=== PATIENT | female | born 1950 | race Caucasian/White ===

== ENCOUNTER 2018-10-18 08:20 | Day surgery (SDC) | payer MEDICARE, OTHER ==
--- NOTE | 2018-10-18 08:04 | PCM.HP ---
H&P History of Present Illness - General Date of Service: 10/18/18 Admit Problem/Dx: History GI bleed, anemia, duodenal/esophageal/gastric ulcers, possible Milena- Barrett tears, change in bowel habits, diarrhea, intermittent abdominal pain, history of tubular adenomatous colon polyp, EGD and colonoscopy Source of Information: Patient, Family - History of Present Illness Initial Comments - Free Text/Narative: The patient is a 67-year-old female referred by Dr. Arcos for a follow-up EGD post GI bleed. She was evaluated last in the clinic on 09/11/2018. Family denies any major medical changes since that visit. However, now has some upper abdominal pain that occurs a couple of times a day for seconds is sharp and not related to eating, seems random. She completed 75% of prep, she is unsure if stools were clear, may have been liquid/brown. The patient was evaluated by cardiology due to non-exertional chest pain, hx of CAD and CABG, after September visit and was cleared for procedure. She did have an echocardiogram to further evaluate her lower leg edema and EF was normal 55-60%. She did have mild to moderate mitral valve regurgitation and mild to moderate aortic regurgitation as well as a grade 1 diastolic dysfunction. The patient has history of being admitted to [facility] in June 2018 for an upper GI bleed. She was found to have nonbleeding duodenal ulcers with visible vessels likely related to NSAID use and acute blood loss anemia secondary to those ulcers. GI recommended a follow-up EGD in 8 weeks to further assess healing and continued PPI use. The patient continues to deny any constipation. She has history of diarrhea. She continues to have at least six stools daily that are light brown, she sees her pills in her stool. Patient did completed stool studies after September visit. C. Diff, stool cultures and cryptosporidium /giardia were negative. She has history of incontinence. She did have a CT scan in June that was negative. No blood in the stool, melena, rectal bleeding. NO abdominal pain today. No family history of IBD or colon cancer. Last colonoscopy was 1999. No reflux, heartburn, nausea, vomiting. She does have trouble swallowing her medications. She continues on Prilosec 40 mg twice daily. She's had no recurrence of symptoms she had an Julia she stopped all NSAIDs. She takes Tylenol for pain. She history of drinking around 1.2 L of henry per week now she drinks very little or nothing. She does continue to have mild anemia. Family does report she has some disoloration of skin to left lower leg from brace. Patient wears the brace under pants, with low socks, directly on skin. - Related Data Allergies/Adverse Reactions: Allergies Allergy/AdvReac Type Severity Reaction Status Date / Time amoxicillin [From Augmentin] Allergy Cannot Verified 10/17/18 12:06 Remember clavulanic acid Allergy Cannot Verified 10/17/18 12:06 [From Augmentin] Remember iodine Allergy Cannot Verified 10/17/18 12:06 Remember Penicillins Allergy Cannot Verified 10/17/18 12:06 Remember quinapril [From Accupril] Allergy Cannot Verified 10/17/18 12:06 Remember Sulfa (Sulfonamide Allergy Cannot Verified 10/17/18 12:06 Antibiotics) Remember Home Medications: Home Meds Acetaminophen [Tylenol] 650 mg PO Q4H PRN 10/17/18 [History] Alendronate Sodium [Fosamax] 70 mg PO WEEKLY 10/17/18 [History] Anastrozole [Arimidex] 1 mg PO DAILY 10/17/18 [History] Baclofen 30 mg PO BID 10/17/18 [History] DULoxetine HCl [Cymbalta] 90 mg PO DAILY 10/17/18 [History] Furosemide 20 mg PO DAILY 10/17/18 [History] Isosorbide Mononitrate [Imdur] 30 mg PO DAILY 10/17/18 [History] Levothyroxine [Synthroid] 100 mcg PO DAILY 10/17/18 [History] Loperamide [Imodium] 2 mg PO ASDIRECTED PRN 10/17/18 [History] Metoprolol Succinate [Toprol XL 100mg] 100 mg PO DAILY 10/17/18 [History] Modafinil 200 mg PO DAILY 10/17/18 [History] Multivitamin [Daily Multiple Vitamin] 1 tab PO DAILY 10/17/18 [History] Potassium Chloride [Klor-Con 10] 10 meq PO DAILY 10/17/18 [History] Trospium [Sanctura] 20 mg PO DAILY 10/17/18 [History] Vit A/Vit C/Vit E/Zinc/Copper [Preservision] 1 tab PO BID 10/17/18 [History] atorvaSTATin Calcium [Lipitor] 20 mg PO DAILY 10/17/18 [History] busPIRone HCl [Buspirone HCl] 7.5 mg PO TID 10/17/18 [History] traMADol [Ultram] 50 mg PO TID 10/17/18 [History] Omeprazole 40 mg PO BID 10/18/18 [History] Zolpidem [Ambien] 5 mg PO DAILY 10/18/18 [History] Past Medical History HEENT History: Reports: None Cardiovascular History: Reports: CAD, High Cholesterol, Hypertension, Other ( See Below) Other Cardiovascular History: aortic valve regurgiation, mitral valve regurgitation, left bundle branch block Respiratory History: Reports: None Gastrointestinal History: Reports: Colon Polyp, GI Bleed, Other (See Below) Other Gastrointestinal History: ulcer Genitourinary History: Reports: Other (See Below) Other Genitourinary History: overactive bladder 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 Musculoskeletal History: Reports: None, Other (See Below) Other Musculoskeletal History: MS Neurological History: Reports: MS Psychiatric History: Reports: Anxiety, Depression Endocrine/Metabolic History: Reports: Hypothyroidism, Obesity/BMI 30+, Osteopenia Hematologic History: Reports: None Immunologic History: Reports: None Oncologic (Cancer) History: Reports: None Dermatologic History: Reports: None - Past Surgical History Head Surgeries/Procedures: Reports: None HEENT Surgical History: Reports: None Cardiovascular Surgical History: Reports: Coronary Artery Bypass Respiratory Surgical History: Reports: None GI Surgical History: Reports: Colonoscopy, EGD Female Surgical History: Reports: Section Male Surgical History: Reports: None Endocrine Surgical History: Reports: None Neurological Surgical History: Reports: None Musculoskeletal Surgical History: Reports: None Dermatological Surgical History: Reports: None Social & Family History - Tobacco Use Smoking Status *Q: Former Smoker Used Tobacco, but Quit: Yes Month/Year Tobacco Last Used: 2006 - Caffeine Use Caffeine Use: Reports: None - Recreational Drug Use Recreational Drug Use: No Drug Use in Last 12 Months: No H&P Review of Systems - Review of Systems: Review Of Systems: See Below Free Text/Narrative: The patient denies any exertional chest pain or shortness of breath, however patient is wheelchair-bound due to emesis. She does use a NuStep at her assisted living facility. No easy bleeding or bruising. No family history of personal history of bleeding or clotting disorders. No problems with anesthesia for her family members. Denies any chest pain presently. She does have a history of chest pain across upper chest. She was evaluated by cardiology and cleared as noted above in history of present illness. She has no cardiac symptoms with her NuStep. She does this tooth to 3 times a week. Denies any palpitation. She does have history of lower extremity to. No dyspnea at rest, orthopnea, claudication, wheezing, sleep apnea, snoring, witnessed apnea. No chronic cough or, colds flu symptoms in the last 2 weeks. No blood thinner use. No joint replacement, Hartfelder placement, seizures or strokes. No fever chills or night sweats. She does have left-sided weakness without mass. History of CAD and CABG in 2006 and follows with Cardiology. General: Reports: No Symptoms. Denies: Fever, Chills HEENT: Reports: Glasses, Visual Changes (wosening vision with MS) Pulmonary: Reports: No Symptoms, Shortness of Breath (shortness of breath at times, not presently. Cannot expound on when or how often she feels short of breath) Cardiovascular: Reports: No Symptoms Gastrointestinal: Reports: Diarrhea Skin: Reports: Change in Color Psychiatric: Reports: No Symptoms, Other (having a hard time with move to [place] due to lack of friends and not seeing grandchildren as much as she would like to ) Neurological: Reports: No Symptoms Hematologic/Lymphatic: Reports: Anemia Immunologic: Reports: No Symptoms Exam - Exam Exam: See Below - Exam General: Alert, Oriented, Cooperative HEENT: Conjunctiva Clear Neck: Supple. No: Lymphadenopathy Lungs: Clear to Auscultation, Normal Respiratory Effort Cardiovascular: Regular Rate, Regular Rhythm, Normal S1, Normal S2 GI/Abdominal Exam: Normal Bowel Sounds, Soft, Non-Tender Back Exam: Normal Inspection Extremities: Non-Tender, No Pedal Edema, Normal Capillary Refill Skin: Warm, Dry, Other (pressure ulcers to left lower leg ) Skin Alteration Location (Drawings Not To Scale): 1 - pressure ulcer 2 - pressure ulcer 3 - pressure ulcer Neurological: Normal Speech Neuro Extensive - Mental Status: Alert, Oriented x3, Normal Mood/Affect, Normal Cognition, Memory Intact Psychiatric: Alert, Normal Affect, Normal Mood - Problem List (1) History of GI bleed SNOMED Code(s): 725824421 ICD Code: Z87.19 - PERSONAL HISTORY OF OTHER DISEASES OF THE DIGESTIVE SYSTEM Status: Acute Current Visit: No (2) Anemia SNOMED Code(s): 183970437 ICD Code: D64.9 - ANEMIA, UNSPECIFIED Status: Acute Current Visit: No (3) Duodenal ulcer SNOMED Code(s): 23486157 ICD Code: K26.9 - DUODENAL ULCER, UNSP ACUTE OR CHRONIC, W/O HEMOR OR PERF Status: Acute Current Visit: No (4) Gastric ulcer SNOMED Code(s): 492466146 ICD Code: K25.9 - GASTRIC ULCER, UNSP ACUTE OR CHRONIC, W/O HEMOR OR PERF Status: Acute Current Visit: No (5) Esophageal ulcer SNOMED Code(s): 16833934 ICD Code: K22.10 - ULCER OF ESOPHAGUS WITHOUT BLEEDING Status: Acute Current Visit: No (6) Change in bowel habits SNOMED Code(s): 954700589, 210074241 ICD Code: R19.4 - CHANGE IN BOWEL HABIT Status: Acute Current Visit: No (7) Diarrhea SNOMED Code(s): 71061477 ICD Code: R19.7 - DIARRHEA, UNSPECIFIED Status: Acute Current Visit: No (8) Lower abdominal pain SNOMED Code(s): 53152925 ICD Code: R10.30 - LOWER ABDOMINAL PAIN, UNSPECIFIED Status: Acute Current Visit: No (9) History of adenomatous polyp of colon SNOMED Code(s): 031132847 ICD Code: Z86.010 - PERSONAL HISTORY OF COLONIC POLYPS Status: Acute Current Visit: No (10) Pressure ulcer SNOMED Code(s): 073576383 ICD Code: L89.90 - PRESSURE ULCER OF UNSPECIFIED SITE, UNSPECIFIED STAGE Status: Acute Current Visit: Yes Qualifiers: Pressure injury location: unspecified location Problem List Initiated/Reviewed/Updated: Yes Orders Last 24hrs: Active Orders 24 hr Category Date Time Status Peripheral IV Care [RC] . DIRECTED Care 10/18/18 07:15 Active Verify Patient Consent Obtain [RC] ASDIRECTED Care 10/18/18 07:15 Active Lactated Ringers [Ringers, Lactated] 1,000 ml Med 10/18/18 07:15 Active IV ASDIRECTED Lidocaine 1%/Sod Bicarbonate [Buffered Lidocaine 1% in Med 10/18/18 07:15 Active NS 8.4%] 0.25 ml IDERM ONETIME PRN Sodium Chloride 0.9% [Saline Flush] Med 10/18/18 07:15 Active 10 ml FLUSH ASDIRECTED PRN Medication Administration Instruction [OM.PC] Routine Oth 10/18/18 07:15 Ordered Peripheral IV Insertion Adult [OM.PC] Routine Oth 10/18/18 07:15 Ordered Medication Orders Lactated Ringer's (Ringers, Lactated) 1,000 mls @ 125 mls/hr IV ASDIRECTED MURTAZA Stop: 10/18/18 23:00 Lidocaine/Sodium Bicarbonate (Buffered Lidocaine 1% In Ns 8.4%) 0.25 ml IDERM ONETIME PRN PRN Reason: Prior to IV Start Stop: 10/18/18 18:00 Sodium Chloride (Saline Flush) 10 ml FLUSH ASDIRECTED PRN PRN Reason: Keep Vein Open Stop: 10/18/18 18:00 Assessment/Plan Comment:: 59-year-old female history of GI bleed, anemia, duodenal/esophageal/gastric ulcers, possible Milena-Barrett tears, change in bowel habits, diarrhea, intermittent abdominal pain, history of tubular adenomatous colon polyp, need for EGD and colonoscopy. Plan: We discussed EGD and colonoscopy. We discussed procedures and postoperative expectations. Procedural will be [facility] at [facility] due to cardiac history and complicated medical history. Patient does also have several pressure ulcers to her left lower leg in location of brace and padding in brace. She wears the brace directly on skin. She cannot tolerate knee high socks as these are too, warm for her. I did contact [facility], as they do go to [place]. Advised I place referral and they will contact [place] staff to assess/treat pressure ulcers and brace to prevent further pressure ulcers from forming. I personally reviewed the patient's previous medical records and laboratory studies. Patient verbalized understanding and agreed with current plan of care. Idalia Gatica, CHINESE INSTRUCTOR-C General Surgery
[~2018-10-18 08:20] MED LIST: Lactated Ringers 1,000 ML IV SCH; Lidocaine 1%/Sod Bicarbonate in NS 8.4% 1 ML Syringe IDERM PRN; Sodium Chloride 0.9% 10 ML Syringe FLUSH PRN
--- NOTE | 2018-10-18 09:53 | PCM.PREANE ---
Preanesthetic Assessment - Anesthesia/Transfusion/Family Hx Anesthesia History: Prior Anesthesia Without Reaction Family History of Anesthesia Reaction: No Transfusion History: No Prior Transfusion(s) - Review of Systems General: No Symptoms Pulmonary: No Symptoms Cardiovascular: No Symptoms Gastrointestinal: No Symptoms Neurological: Numbness (feet left side is MS) Other: Reports: Thyroid Problems (hypo thyroid) - Physical Assessment NPO Status Date: 10/17/18 NPO Status Time: 22:30 Pulse: 72 O2 Sat by Pulse Oximetry: 100 Respiratory Rate: 16 Blood Pressure: 131/85 Temperature: 36.4 C Vital Signs: Last Vital Signs Temp 36.4 C 10/18/18 08:30 Pulse 72 10/18/18 08:30 Resp 16 10/18/18 08:30 BP 131/85 10/18/18 08:30 Pulse Ox 100 10/18/18 08:30 Height: 1.63 m Weight: 64.864 kg ASA Class: 3 Mental Status: Alert & Oriented x3 Dentition: Reports: Normal Dentition Thyro-Mental Finger Breadths: 2 Mouth Opening Finger Breadths: 2 ROM/Head Extension: Full Lungs: Clear to Auscultation, Normal Respiratory Effort Cardiovascular: Regular Rate, Regular Rhythm - Lab Values: on chart - Imaging/EKG Impressions: on chart - Allergies Allergies/Adverse Reactions: Allergies Allergy/AdvReac Type Severity Reaction Status Date / Time amoxicillin [From Augmentin] Allergy Cannot Verified 10/17/18 12:06 Remember clavulanic acid Allergy Cannot Verified 10/17/18 12:06 [From Augmentin] Remember iodine Allergy Cannot Verified 10/17/18 12:06 Remember Penicillins Allergy Cannot Verified 10/17/18 12:06 Remember quinapril [From Accupril] Allergy Cannot Verified 10/17/18 12:06 Remember Sulfa (Sulfonamide Allergy Cannot Verified 10/17/18 12:06 Antibiotics) Remember - Blood Blood Available: No Product(s) Available: None - Anesthesia Plan Pre-Op Medication Ordered: Beta Jhonatan Beta Jhonatan: Metoprolol Med Last Dose Date: 10/18/18 Med Last Dose Time: 09:53 - Acknowledgements Anesthesia Type Planned: MAC Pt an Appropriate Candidate for the Planned Anesthesia: Yes Alternatives and Risks of Anesthesia Discussed w Pt/Guardian: Yes Pt/Guardian Understands and Agrees with Anesthesia Plan: Yes PreAnesthesia Questionnaire HEENT History: Reports: None Cardiovascular History: Reports: CAD, High Cholesterol, Hypertension, Other ( See Below) Other Cardiovascular History: aortic valve regurgiation, mitral valve regurgitation, left bundle branch block Respiratory History: Reports: None Gastrointestinal History: Reports: Colon Polyp, GI Bleed, Other (See Below) Other Gastrointestinal History: ulcer Genitourinary History: Reports: Other (See Below) Other Genitourinary History: overactive bladder 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 Musculoskeletal History: Reports: None, Other (See Below) Other Musculoskeletal History: MS Neurological History: Reports: MS Psychiatric History: Reports: Anxiety, Depression Endocrine/Metabolic History: Reports: Hypothyroidism, Obesity/BMI 30+, Osteopenia Hematologic History: Reports: None Immunologic History: Reports: None Oncologic (Cancer) History: Reports: None Dermatologic History: Reports: None - Past Surgical History Head Surgeries/Procedures: Reports: None HEENT Surgical History: Reports: None Cardiovascular Surgical History: Reports: Coronary Artery Bypass Respiratory Surgical History: Reports: None GI Surgical History: Reports: Colonoscopy, EGD Female Surgical History: Reports: Section Male Surgical History: Reports: None Endocrine Surgical History: Reports: None Neurological Surgical History: Reports: None Musculoskeletal Surgical History: Reports: None Dermatological Surgical History: Reports: None - SUBSTANCE USE Smoking Status *Q: Former Smoker Recreational Drug Use History: No - HOME MEDS Home Medications: Home Meds Acetaminophen [Tylenol] 650 mg PO Q4H PRN 10/17/18 [History] Alendronate Sodium [Fosamax] 70 mg PO WEEKLY 10/17/18 [History] Anastrozole [Arimidex] 1 mg PO DAILY 10/17/18 [History] Baclofen 30 mg PO BID 10/17/18 [History] DULoxetine HCl [Cymbalta] 90 mg PO DAILY 10/17/18 [History] Furosemide 20 mg PO DAILY 10/17/18 [History] Isosorbide Mononitrate [Imdur] 30 mg PO DAILY 10/17/18 [History] Levothyroxine [Synthroid] 100 mcg PO DAILY 10/17/18 [History] Loperamide [Imodium] 2 mg PO ASDIRECTED PRN 10/17/18 [History] Metoprolol Succinate [Toprol XL 100mg] 100 mg PO DAILY 10/17/18 [History] Modafinil 200 mg PO DAILY 10/17/18 [History] Multivitamin [Daily Multiple Vitamin] 1 tab PO DAILY 10/17/18 [History] Potassium Chloride [Klor-Con 10] 10 meq PO DAILY 10/17/18 [History] Trospium [Sanctura] 20 mg PO DAILY 10/17/18 [History] Vit A/Vit C/Vit E/Zinc/Copper [Preservision] 1 tab PO BID 10/17/18 [History] atorvaSTATin Calcium [Lipitor] 20 mg PO DAILY 10/17/18 [History] busPIRone HCl [Buspirone HCl] 7.5 mg PO TID 10/17/18 [History] traMADol [Ultram] 50 mg PO TID 10/17/18 [History] Omeprazole 40 mg PO BID 10/18/18 [History] Zolpidem [Ambien] 5 mg PO DAILY 10/18/18 [History] - CURRENT (IN HOUSE) MEDS Current Meds: Current Medications Lactated Ringer's (Ringers, Lactated) 1,000 mls @ 125 mls/hr IV ASDIRECTED MURTAZA Stop: 10/18/18 23:00 Lidocaine/Sodium Bicarbonate (Buffered Lidocaine 1% In Ns 8.4%) 0.25 ml IDERM ONETIME PRN PRN Reason: Prior to IV Start Stop: 10/18/18 18:00 Sodium Chloride (Saline Flush) 10 ml FLUSH ASDIRECTED PRN PRN Reason: Keep Vein Open Stop: 10/18/18 18:00
[2018-10-18] MEDS ORDERED: Metoprolol Tartrate 5 MG/5 ML SDV ONE (10:21)
[2018-10-18] MEDS ORDERED: Propofol 200 MG/20 ML SDV ONE ×3 (10:33→10:59)
[2018-10-18] MEDS ORDERED: Midazolam 1 MG/ML 2 ML SDV ONE (11:05)
[2018-10-18] MEDS ORDERED: Lactated Ringers 1,000 ML ONE (11:06)
--- NOTE | 2018-10-18 11:35 | PCM.OPNOTE ---
- General Post-Op/Procedure Note Date of Surgery/Procedure: 10/18/18 Operative Procedure(s): EGD and incomplete colonoscopy Findings: 1. Gastritis 2. Bilious secretions in the stomach 3. Irregular GE junction, suspicious for Morales's vs. esophagitis 4. Denuded duodenal mucosa 5. Edema and patchy erythema throughout the colon Pre Op Diagnosis: History of duodenal ulcer, change in bowel habits, history of colon polyps Post-Op Diagnosis: Same Anesthesia Technique: [facility] [place] Primary Surgeon: Theresa Julian Anesthesia Provider: Jose Lew Pathology: 1. Antrum mucosa for H. pylori 2. Duodenal bulb biopsy 3. GE junction biopsy 4. Cecum biopsy 5. Ascending colon biopsy 6. Transverse colon biopsy 7. Descending colon biopsy 8. Sigmoid colon biopsy 9. Rectal biopsy Fluid Replacement, Intraop: 1,200 Output, Urine Amount: 0 EBL in mLs: 0 Complications: Inadequate, incomplete preparation as well as inability to enter the cecum Condition: Good
--- NOTE | 2018-10-18 15:34 | PCM.PRNOTE ---
- Free Text/Narrative Note: Operative Report Date of Procedure: October 18 2018 Pre Op Diagnosis: History of duodenal ulcer, change in bowel habits and history of colon polyp Post-Op Diagnosis: Same Operative Procedures: 1. EGD with biopsy 2. Incomplete Colonoscopy with biopsy, and inadequate preparation Primary Surgeon: Theresa Julian MD Anesthesia Provider: Jose Lew CRNA Anesthesia Technique: MAC IV Fluid Replacement, Intraop: 1200cc crystalloid Output, Urine Amount: 0cc EBL in mLs: 0cc Findings: 1. Gastritis 2. Bilious secretions in the stomach 3. Irregular GE junction, suspicious for Morales's vs. esophagitis 4. Denuded duodenal mucosa 5. Edema and patchy erythema throughout the colon Specimens: 1. Antrum mucosa for H. pylori 2. Duodenal bulb biopsy 3. GE junction biopsy 4. Cecum biopsy 5. Ascending colon biopsy 6. Transverse colon biopsy 7. Descending colon biopsy 8. Sigmoid colon biopsy 9. Rectal biopsy Drain/Tubes: None Indication: The patient is a 67-year-old lady who presented to the clinic with , history of duodenal ulcer as well as change in bowel habits with diarrhea of new onset. She also has a history of a large adenomatous polyp. The patiente was consented for a diagnostic EGD and colonoscopy. Risks of bleeding, and perforation were discussed, and the patient agreed to the risks and wished to proceed. Description of the procedure: The patient was taken back to the endoscopy suite, and placed in the left lateral decubitus position. Local anesthetic to the oropharynx was administered , and a bite block was placed. The patient was sedated with MAC anesthesia. The Olympus video endoscope was inserted into the oropharynx and guided under direct vision into the esophagus, stomach, and duodenum. The gastric antrum was inspected and cold biopsy forceps were used to take tissue samples for H. pylori. The duodenal bulb had some blunted villous, possibly in the location of the previous ulceration. Cold biopsy forceps was used to take his tissue sample in this area. The second portion of the duodenum was unremarkable. The scope was withdrawn to the stomach and retroflexed. There was increased bilious fluid pooled near the fundus. This was suctioned and removed. There was gastritis noted near the antrum. The scope was withdrawn to the esophagus. A this point we did not note a hiatal hernia. There was some irregularity at the GE junction as well as a 8 mm island of esophagitis just proximal to the GE junction. Biopsies were taken in 4 quadrants of this area using cold biopsy forceps. This was suspicious for short segment Barretts esophagus versus esophagitis. The endoscope was then withdrawn Next, anorectal examination was performed. No lesions, masses or hemorrhoids were noted externally or on palpation. The scope was placed into the rectum and advanced to cecum. Upon reaching the cecum, the cecum could not be entered. Partial visualization of the cecum was accomplished and there was visualization of the ileocecal valve. There was moderate tortuosity of the colon with significant looping of the colonoscope. Abdominal pressure as well as change in patient position to supine was attempted in order to facilitate completion of the scope, these measures were not fully successful. At this point, the scope was slowly withdrawn, paying attention to the mucosa. The patient had an adequate bowel prep, 65-70% of the mucosa was visible, but there were large pieces of particulate matter within the colon that could not be suctioned due to their large size. The martinez of the colon were then inadequately visualized. Areas of edematous mucosa were present scattered throughout the entire colon as well as some patchy areas of erythema in the cecum, ascending and transverse colon. Random colon biopsies were taken throughout to be sent for pathology. In the rectum, scope was retroflexed and some hemorrhoidal tissue was noted. The scope was removed. The patient tolerated the procedure well. Complications: None apparent Condition: The patient was transported to PACU in stable condition. Recommendation: The patient will need repeat scope in one year due to inadequate preparation as well as inability to fully reach the cecum. Await pathology for further treatment Theresa Julian MD General Surgery
== END 2018-10-18 12:37 | disposition home or self-care (01) ==
LOC: JD.SDS 08:20
PROVIDERS: ATTEND Surgery
DX: R19.4 Change in bowel habit (principal); K52.831 Collagenous colitis; K29.50 Unspecified chronic gastritis without bleeding; K20.9 Esophagitis, unspecified; I10 Essential (primary) hypertension; E66.9 Obesity, unspecified; I25.10 Atherosclerotic heart disease of native coronary artery without angina pectoris; F41.9 Anxiety disorder, unspecified; F32.9 Major depressive disorder, single episode, unspecified; E78.00 Pure hypercholesterolemia, unspecified; E03.9 Hypothyroidism, unspecified; Z87.891 Personal history of nicotine dependence; Z86.010 Personal history of colon polyps; Z87.19 Personal history of other diseases of the digestive system; Z79.899 Other long term (current) drug therapy; Z79.890 Hormone replacement therapy; Z88.0 Allergy status to penicillin; Z88.1 Allergy status to other antibiotic agents; Z88.2 Allergy status to sulfonamides; Z88.8 Allergy status to other drugs, medicaments and biological substances
CPT/HCPCS: 43239; 45380; J2704; J3490; J7120; J2250

== ENCOUNTER 2021-11-09 04:58 | Emergency (ER) | payer MEDICARE, OTHER ==
[2021-11-09] MEDS ORDERED: Acetaminophen 325 MG Tab PO ONE (05:19)
== END 2021-11-09 08:43 | disposition home or self-care (01) ==
LOC: JD.ED 04:58
DX: M54.50 Low back pain, unspecified (principal); I25.10 Atherosclerotic heart disease of native coronary artery without angina pectoris; E78.00 Pure hypercholesterolemia, unspecified; I10 Essential (primary) hypertension; E03.9 Hypothyroidism, unspecified; E66.9 Obesity, unspecified; Z68.30 Body mass index [BMI] 30.0-30.9, adult; Z79.899 Other long term (current) drug therapy; Z88.0 Allergy status to penicillin; Z88.2 Allergy status to sulfonamides; Z91.041 Radiographic dye allergy status; Z88.8 Allergy status to other drugs, medicaments and biological substances
CPT/HCPCS: 72128; 72128-26; 72131; 72131-26; 99283; 99284-25; A9270-GY

== ENCOUNTER 2021-11-29 15:59 | Emergency (ER) | payer MEDICARE, OTHER ==
[2021-11-29] MEDS ORDERED: Sodium Chloride 0.9% 10 ML Syringe FLUSH PRN (18:39)
[2021-11-29] MEDS ORDERED: Acetaminophen 325 MG Tab PO ONE (18:48)
[2021-11-29] MEDS ORDERED: cefTRIAXone 1 GM in Sodium Chloride 0.9% 100 ML IV ONE (20:34)
== END 2021-11-29 21:58 ==
LOC: JD.ED 15:59
DX: L03.116 Cellulitis of left lower limb (principal); I25.10 Atherosclerotic heart disease of native coronary artery without angina pectoris; E78.00 Pure hypercholesterolemia, unspecified; I10 Essential (primary) hypertension; G35 Multiple sclerosis; E03.9 Hypothyroidism, unspecified; E66.9 Obesity, unspecified; Z68.34 Body mass index [BMI] 34.0-34.9, adult; Z88.0 Allergy status to penicillin; Z91.041 Radiographic dye allergy status; Z88.2 Allergy status to sulfonamides; Z79.899 Other long term (current) drug therapy
CPT/HCPCS: 36415; 80053; 83605; 85025; 86140; 87040; 93971; 96365; 99285; A9270; J0696; J3490

== ENCOUNTER 2023-06-27 18:50 | Emergency (ER) | payer MEDICARE, OTHER ==
[2023-06-27] MEDS ORDERED: Sodium Chloride 0.9% 10 ML Syringe FLUSH PRN (19:08)
[2023-06-27 19:22] LABS: BASOPHILS PERCENT AUTO 0.5 % (0.0-1.0); EOSINOPHILS ABSOLUTE AUTO 0.3 K/mm3 (0.0-0.4); EOSINOPHILS PERCENT AUTO 3.9 % (0.0-6.0); HEMATOCRIT 37.4 % (37.0-47.0); HEMOGLOBIN 12.5 gm/dl (12.0-16.0); IMMATURE GRAN ABSOLUTE AUTO 0.06 K/mm3 (0.00-0.05); IMMATURE GRAN PERCENT AUTO 0.8 % (0.0-0.4); LYMPHOCYTES ABSOLUTE AUTO 1.6 K/mm3 (1.0-4.8); LYMPHOCYTES PERCENT AUTO 20.2 % (24.0-44.0); MEAN CORPUSCULAR HEMOGLOBIN 30.9 pg (28.0-32.0); MEAN CORPUSCULAR HGB CONC 33.4 g/dl (32.0-36.0); MEAN CORPUSCULAR VOLUME 92.3 fl (83.0-99.0); MEAN PLATELET VOLUME 8.6 fl (9.4-12.3); MONOCYTES ABSOLUTE AUTO 0.5 K/mm3 (0.0-0.8); NEUTROPHILS ABSOLUTE AUTO 5.2 K/mm3 (1.8-7.7); NEUTROPHILS PERCENT AUTO 67.6 % (41.0-71.0); PLATELET COUNT,PLT 177 K/mm3 (150-400); RED BLOOD CELL COUNT 4.05 M/mm3 (4.10-5.30); WHITE BLOOD CELL COUNT,WBC 7.69 K/mm3 (3.9-11.3)
[2023-06-27 19:38] LABS: INR 0.97; PROTHROMBIN TIME 10.4 SECONDS (9.7-12.0)
[2023-06-27 19:56] LABS: A/G RATIO 0.8 (1-2); ALBUMIN 3.3 g/dl (3.4-5.0); ANION GAP 15.2 (5-15); BILIRUBIN TOTAL 0.4 mg/dL (0.2-1.0); BUN/CREATININE RATIO 14.2 (14-18); CALCIUM 9.2 mg/dL (8.5-10.1); CREATININE 1.2 mg/dL (0.55-1.02); EST CRCL DRUG DOSING (CG) 36.05 mL/min; MAGNESIUM 1.7 mg/dL (1.8-2.4); POTASSIUM,K 4.2 mEq/L (3.5-5.1); PROTEIN TOTAL,TP 7.6 g/dl (6.4-8.2)
[2023-06-27] MEDS ORDERED: Acetaminophen 325 MG Tab PO ONE (20:22)
[2023-06-27 22:13] LABS: CORONAVIRUS COVID-19 NAA NEGATIVE (NEGATIVE); INFLUENZA A NAA NEGATIVE (NEGATIVE); RESPIRATORY SYNCYTIAL VIR NAA NEGATIVE (NEGATIVE)
== END 2023-06-28 00:15 | disposition home or self-care (01) ==
LOC: JD.ED 18:50
DX: R07.9 Chest pain, unspecified (principal); I25.10 Atherosclerotic heart disease of native coronary artery without angina pectoris; E78.00 Pure hypercholesterolemia, unspecified; E03.9 Hypothyroidism, unspecified; I10 Essential (primary) hypertension; E66.9 Obesity, unspecified; Z68.30 Body mass index [BMI] 30.0-30.9, adult; Z88.0 Allergy status to penicillin; Z91.041 Radiographic dye allergy status; Z88.2 Allergy status to sulfonamides; Z88.8 Allergy status to other drugs, medicaments and biological substances; Z79.899 Other long term (current) drug therapy; Z20.822 Contact with and (suspected) exposure to COVID-19
CPT/HCPCS: 0241U; 36415; 71045; 80053; 83735; 83880; 84484; 85025; 85610; 93005; 99285; A9270; J3490; 93010; 99284